=== PATIENT | female | born 1955 | race Caucasian/White ===

== ENCOUNTER 2024-05-18 12:44 | Outpatient (AMB) | payer MEDICARE, MEDICAID, SELFPAY ==
[2024-05-18 12:58] VITALS: BP 139/62; PULSE 78; O2SAT 99; BMI 34.0
--- NOTE | 2024-05-18 12:58 | MHC.OFFVIS ---
Vital Signs 05/18/24 12:58 Height 5 ft 2 in Weight 186 lb BMI 34.0 BP 139/62 Blood Pressure Location Lt brachial Position Sitting Pulse 78 Pulse Source Pulse Oximeter Pulse Oximetry (%) 99 Intake Visit Reasons: Lumbar Disc Disease Allergies azithromycin Allergy (Intermediate, Verified 05/18/24 13:00) High blood pressure Penicillins Allergy (Intermediate, Verified 05/18/24 13:00) High blood pressure Medication List - Last Reconciled 05/18/24 by Delilah Aguirre acetaminophen ER (Tylenol 8 Hour) 1,300 mg PO Q12H clonazepam 0.5 mg PO DAILY diclofenac sodium-menthol 1.5-10 % pkgs topical ivermectin 1% 1 appl topical DAILY omeprazole 20 mg PO DAILY HPI Comments Details: Mariaelena is a very pleasant 68-year-old female who presents to the office today, accompanied by her daughter, for evaluation and management of her chronic lower back pain Patient is [place] speaking, certification engineer was offered but patient and daughter declined. A requested daughter to assist with interpreting for the visit She has been suffering with greater than 3 years of bilateral lower back pain with radiation down both legs into the thighs. Denies inciting injury, fall, trauma Pain does not radiate past the level of the knee Pain is worse with sitting, standing, washing dishes, cooking and going up and down stairs She completed physical therapy last year with improvement that was short-lived, pain has since returned Currently undergoing treatment by chiropractor, this has resolved her upper back pain but the lower back pain persists Patient currently taking Tylenol without improvement. She has tried ibuprofen sparingly without improvement. She was told to avoid nonsteroidal anti-inflammatory medications due to stomach issues Pain today is rated as a 6/10, constant and worse in the evening Denies red flag symptoms including new loss of bowel, bladder or saddle anesthesia In terms of muscle damage condition is described as burning, aching, sharp, stabbing, tiring, dull, sore, pinching, cramping, pulsing Pain is negatively impacting patient's enjoyment of life, normal sleep, ability to perform activities of daily living, normal functioning Denies current use of anticoagulants Denies current use of nicotine, tobacco, alcohol or illicit substances Denies implantable devices, pacemaker or defibrillator FOR[facility]LY [facility] Medical History (Updated 05/18/24 @ 13:38 by Valeria Teague, PODIATRY ASSISTANT, SMALL ENGINE TECHNICIAN) GERD (gastroesophageal reflux disease) Rosacea Anxiety Lung cancer Surgical History (Updated 05/18/24 @ 13:38 by Valeria Teague APRN, SMALL ENGINE TECHNICIAN) Hx of cholecystectomy Review of Systems Const All systems reviewed & are unremarkable except as noted in HPI and below Physical Exam Vital Signs: Last Vital Signs Pulse 78 05/18/24 12:58 BP 139/62 05/18/24 12:58 Pulse Ox 99 05/18/24 12:58 BMI result Body Mass Index 34.0 General: awake, alert, oriented. Answers questions appropriately. Fully engaged in examination. Skin: warm, dry, intact HEENT: Normocephalic. Hearing intact. Cardiac: External chest normal in appearance. Respiratory: No cough, audible wheezing or stridor. Abdomen: without gross distension. MS: No obvious swelling or deformities. Able to stand on bilateral tiptoes and bilateral heels.? Able to transition from sit to stand unassisted. Ambulates with bilaterally normal heel strike and toe off Range of motion: Pain with forward flexion at 60 degrees, extension at 10 degrees SLR negative bilaterally JOSE ANGEL positive bilaterally Thigh thrust positive bilaterally [place] positive bilaterally Facet loading positive bilaterally Tenderness to palpation over bilateral PSIS Tenderness over midline lumbar vertebrae and lumbar paraspinal muscles No pain with internal/external rotation of hips bilaterally Neurological: Oriented to person, place, time and situation. Thought process intact. No gait abnormalities appreciated. Psychiatric: Appropriate mood and affect. Good judgment and insight. Assessment & Plan Assessment & Plan (1) Sacroiliac joint dysfunction of both sides: Code(s): M53.3 - Sacrococcygeal disorders, not elsewhere classified Category: Medical (2) Lumbar spondylosis: Code(s): M47.816 - Spondylosis without myelopathy or radiculopathy, lumbar region Category: Medical Plan Mariaelena is a very pleasant 68-year-old female who presented to the office today, accompanied by her daughter, for evaluation and management of her chronic lower back pain History, physical exam and provocative testing consistent with bilateral sacroiliac joint dysfunction and lumbar spondylosis Discussed at length patient's diagnosis and treatment options. She is hesitant to proceed with injections. Requesting to try another round of physical therapy and SI belt. Order placed for PT eval and treat. Patient requesting [facility] as she already has established relationship in the office. X-ray ordered bilateral hips and pelvis SI belt not available in the office at this time, patient will return to pick it up once they are restocked All questions and concerns were answered, patient agrees with the plan. Follow up after PT, sooner if needed Orders: Orders PT Evaluation and Treatment Today M47.816 - Spondylosis without myelopathy or radiculopathy, lumbar region, M53.3 - Sacrococcygeal disorders, not elsewhere classified XR hip BI w [id number] Today M53.3 - Sacrococcygeal disorders, not elsewhere classified Coding Level of Care Code New Pt Level 4 (49342) Diagnoses Sacroiliac joint dysfunction of both sides M53.3 Lumbar spondylosis M47.816
== END 2024-05-18 13:29 | disposition home or self-care (01) ==
PROVIDERS: PCP Physician Assistant; Visit Provider Registered Nurse Emergency
DX: M53.3 Sacrococcygeal disorders, not elsewhere classified (principal); M47.816 Spondylosis without myelopathy or radiculopathy, lumbar region
CPT/HCPCS: 99204

== ENCOUNTER → 2024-05-18 12:44 | Outpatient (BNVA) | payer MEDICARE, MEDICAID, SELFPAY | PROVIDERS: PCP Physician Assistant; Visit Provider Registered Nurse Emergency | DX: M53.3 Sacrococcygeal disorders, not elsewhere classified (principal); M47.816 Spondylosis without myelopathy or radiculopathy, lumbar region | CPT/HCPCS: 99202 ==